=== PATIENT | male | born 1995 | race Caucasian/White ===

== ENCOUNTER 2017-04-21 11:16 | Emergency (ER) | payer OTHER ==
[2017-04-21] MEDS ORDERED: DIPH,PERTUS(ACELL)TETVAC-LF 0.5 ML VIAL IM ONE (11:50)
--- NOTE | 2017-04-21 12:05 | ED ---
Lower Extremity Injury HPI - General Chief Complaint: Extremity Injury, Lower Stated Complaint: stepped on nail/right foot Time Seen by Provider: 04/21/17 11:47 Source: patient Mode of arrival: ambulatory Limitations: no limitations - History of Present Illness Initial Comments: This 22-year-old white male presents complaining of stepping on a nail. This apparently occurred just prior to arrival. He is wearing boots and a sock at that time. It is on the distal aspect of his right foot. He complains of mild pain. There is minimal bleeding which has stopped. He is unsure of his last tetanus prophylaxis. No other complaints or modifying factors. - Related Data Home Medications Medication Instructions Recorded Confirmed [id number] 1 tab PO Q4HR PRN 04/21/17 04/21/17 [Excedrin] Previous Rx's Medication Instructions Recorded Ciprofloxacin HCl [Cipro] 500 mg PO Q12HR #10 tablet 04/21/17 Allergies Allergy/AdvReac Type Severity Reaction Status Date / Time No Known Allergies Allergy Verified 04/21/17 11:45 Review of Systems ROS Statement: Those systems with pertinent positive or pertinent negative responses have been documented in the HPI. ROS Other: All systems not noted in ROS Statement are negative. Past Medical History Past Medical History: No Reported History History of Any Multi-Drug Resistant Organisms: None Reported Additional Past Surgical History / Comment(s): fith digit right hand Past Psychological History: No Psychological Hx Reported Smoking Status: Current some day smoker Past Alcohol Use History: Occasional Past Drug Use History: Marijuana General Exam Limitations: no limitations General appearance: alert, in no apparent distress Extremities exam: Present: normal inspection, full ROM, tenderness (There is mild tenderness present to the distalmost plantar aspect medially. This is directly over the puncture wound site. There is no other tenderness noted.), normal capillary refill Neurological exam: Present: alert, oriented X3. Absent: motor sensory deficit Psychiatric exam: Present: normal affect, normal mood Skin exam: Present: other (There is a puncture wound noted to the distal plantar aspect of the medial foot on the right side.). Absent: rash Course Vital Signs 04/21/17 11:31 Temperature 97.5 F L Pulse Rate 69 Respiratory 17 Rate Blood Pressure 110/61 O2 Sat by Pulse 100 Oximetry Medical Decision Making - Medical Decision Making The patient was seen and examined. A tetanus prophylaxis given. The wound was anesthetized with 1% lidocaine, approximately 2 mL. Excellent anesthesia is obtained. There is a small nonviable flap of skin over the puncture wound which is removed. The wound was explored and no foreign bodies are noted in the wound. Antibiotic ointment and dressing is applied. He does not have any deep tenderness to the foot and it is not felt as though a x-ray would be beneficial at this time. He is counseled regarding infection possibilities in return parameters and leaves in no distress. Disposition Clinical Impression: Puncture wound Disposition: HOME SELF-CARE Condition: Good Instructions: Puncture Wound (ED) Prescriptions: Ciprofloxacin HCl [Cipro] 500 mg PO Q12HR #10 tablet Referrals: None,Stated [Primary Care Provider] - 1-2 days Time of Disposition: 12:04
[2017-04-21 12:24] VITALS: BP 121/58; PULSE 65; RESP 19; TEMP 98.4
== END 2017-04-21 12:30 | disposition home or self-care (01) ==
LOC: EC 11:16
DX: S91.331A Puncture wound without foreign body, right foot, initial encounter (principal); F17.200 Nicotine dependence, unspecified, uncomplicated; Z23 Encounter for immunization; W45.0XXA Nail entering through skin, initial encounter
CPT/HCPCS: 90471; 90715; 99282